=== PATIENT | male | born 1945 | race Caucasian/White ===

== ENCOUNTER → 2022-08-12 | Emergency (ER) | payer OTHER ==
[~2022-08-12] VITALS: Ht 172.7 cm; Wt 99.8 kg
[~2022-08-12] MED LIST: CRESTOR10 MG PO; ELIQUIS5 MG PO; FLECAINIDE ACET50 MG PO; ZIAC 5-6.25 MG1 EACH PO
== END | disposition left against medical advice (07) ==
LOC: ER 11:52
DX: R42 Dizziness and giddiness (principal); Z85.9 Personal history of malignant neoplasm, unspecified